=== PATIENT | female | born 1985 | race Caucasian/White ===

== ENCOUNTER 2017-08-08 07:58 | Observation (INO) ==
[2017-08-08] MEDS ORDERED: Albuterol 2.5 MG/3 ML NEBULIZER IH ONE (08:25)
[2017-08-08] MEDS ORDERED: CeFAZolin Syr 2,000MG/20 ML 2,000 MG/20 ML SYRINGE IVPB ONE (08:30)
[2017-08-08 08:44] LABS: Basophils % 0.2 %; Eosinophils # 0.3 K/mcL (0.0-0.6); Eosinophils % 3.7 %; Hematocrit 41.6 % (35.3-44.9); Hemoglobin 13.7 g/dL (11.5-15.4); Immature Granulocytes % 0.2 % (0-4); Lymphocytes # 2.5 K/mcL (0.6-4.6); Lymphocytes % 28.3 %; Mean Corpuscular HGB Conc 32.9 g/dL (31.6-35.5); Mean Corpuscular Hemoglobin 28.8 pg (28.0-33.3); Mean Corpuscular Volume 87.6 fL (83.0-100.0); Mean Platelet Volume 9.8 fL (9.4-12.4); Monocytes # 0.7 K/mcL (0.0-1.3); Monocytes % 8.2 %; Neutrophils # 5.3 K/mcL (1.6-8.9); Platelet Count 243 K/mcL (140-400); Red Blood Count 4.75 M/mcL (3.82-4.97); Red Cell Distribution Width 12.8 % (11.5-14.5); Segmented Neutrophils % 59.4 %
[2017-08-08] MEDS: Ringers Solution, Lactated 1,000 ML IVC SCH ×2 (08:48→13:24)
[2017-08-08 08:49] LABS: INR 1.1; Prothrombin Time 11.6 Seconds (9.4-12.1)
--- NOTE | 2017-08-08 08:53 | Anesthesia Evaluation PreOp ---
Date of Encounter: 08/08/17 Time of Encounter: 08:48 - Past History Planned Operation: left percutaneous nephrolithotomy Cardiac History: Denies any Significant Hx Pulmonary History: Smoker PLUMBING MANAGER History: Denies Any Significant HX Other Medical History: Renal (staghorn calculus) Anesthesia History: No Prior Anesthetic Complications, Past Anesthesia (KVNG, appy, lithotripsy) : No Alcohol Use: none Drug use: none Medications and Allergies HYDROcodone/Acet 5/325 mg [[place] 5-325 mg] 1 tab PO Q6H PRN 08/08/17 [History] 3 Allergy/AdvReac Type Severity Reaction Status Date / Time codeine Allergy Hives Verified 08/08/17 08:20 tramadol AdvReac Vomiting/NA Verified 08/08/17 08:20 USEA - Meds/Allergy Pre-op Review Medications Reviewed: Yes Allergies Reviewed: Yes Beta Blockers on Current Med List: No Anesthesia Exam Selected Entries 08/08/17 08:36 Temperature 97.8 F Pulse Rate 84 Respiratory Rate 18 Blood Pressure 114/72 O2 Sat by Pulse Oximetry 100 NPO (# of Hours): 8 - HEENT Mallampati: II Teeth: Edentulous Oral Opening: Greater than 3 - PLUMBING MANAGER LOC: Oriented PLUMBING MANAGER Motor: Normal RUE, Normal LUE, Normal RLE, Normal LLE, Normal Face PLUMBING MANAGER Sensory: Normal: RUE, LUE, RLE, LLE, Face - Cardiac Rhythm: Regular Murmur: None - Pulmonary Breath Sounds: bilateral Clear Respiratory Effort: Symmetrical Anesthesia Assess/Plan ASA Score: 2 Modified [place] Scale for Level of Consciousness: Cooperative, oriented, and tranquil Anesthetic Plan: General Monitoring Plan: Standard Monitors Recovery Plan: PACU (agrees to GA)
--- NOTE | 2017-08-08 09:06 | History & Physical Report ---
Date of Encounter: 08/08/17 Time of Encounter: 09:06 24 Hour HP Update - Instructions Instructions: If the History and Physical is less than 30 days old and was completed prior to A.M. admission and or procedure and has NOT been updated on calendar day of procedure please complete this update prior to performing procedure. - Update Patient reports changes in Medical Condition: No Changes in examination, assessment, or condition: No Changes in Medication: No Preop tests/diagnostics Reviewed: Yes Surgery Remains Indicated: Yes Consent for Planned Operative Procedure(s) Verified: Yes - Pre-Operative Checklist Preoperative Checklist Indicated: Yes Prophylactic Antibiotic Ordered: Yes Home Medications Include Beta Parker: No Is VTE Prophylaxis Indicated?: Yes
[2017-08-08] MEDS ORDERED: *HR* FentaNYL (PF) 100 MCG/2 ML VIAL ONE ×4 (09:14→10:58)
[2017-08-08] MEDS ORDERED: *HR* Midazolam HCl 2 MG/2 ML VIAL ONE ×2 (09:14→09:47)
[2017-08-08] MEDS ORDERED: Dexamethasone 4 MG/ML VIAL ONE (09:15)
[2017-08-08] MEDS ORDERED: Ondansetron 4 MG/2 ML VIAL ONE (09:15)
[2017-08-08] MEDS ORDERED: 0.9 % Sodium Chloride 500 ML ONE (09:16)
[2017-08-08] MEDS ORDERED: *HR* Rocuronium Bromide 50 MG/5 ML VIAL ONE (09:21)
[2017-08-08] MEDS ORDERED: *HR* Succinylcholine 200 MG/10 ML VIAL IVP ONE (09:21)
[2017-08-08] MEDS ORDERED: *HR* Midazolam HCl 2 MG/2 ML VIAL IVP ONE ×3 (09:29→09:55)
[2017-08-08] MEDS ORDERED: *HR* FentaNYL (PF) 100 MCG/2 ML VIAL IVP ONE ×3 (09:29→09:55)
--- NOTE | 2017-08-08 09:36 | History & Physical Report ---
Date of Encounter: 08/08/17 Time of Encounter: 09:00 24 Hour HP Update - Instructions Instructions: If the History and Physical is less than 30 days old and was completed prior to A.M. admission and or procedure and has NOT been updated on calendar day of procedure please complete this update prior to performing procedure. - Update Patient reports changes in Medical Condition: No Changes in examination, assessment, or condition: No Changes in Medication: No Preop tests/diagnostics Reviewed: Yes Pre-Op MRSA Screen: Negative Surgery Remains Indicated: Yes Consent for Planned Operative Procedure(s) Verified: Yes - Pre-Operative Checklist Preoperative Checklist Indicated: Yes Prophylactic Antibiotic Ordered: No (Aready receiving it) Is VTE Prophylaxis Indicated?: NO
--- NOTE | 2017-08-08 09:40 | Pre-Sedation Evaluation ---
Pre-sedation evaluation - Pre-sedation checklist Date of procedure: 08/08/17 Recent Vitals: Last Vital Signs Temp 97.8 F 08/08/17 08:36 Pulse 84 08/08/17 08:36 Resp 18 08/08/17 08:49 BP 114/72 08/08/17 08:49 Pulse Ox 100 08/08/17 08:49 H&P (including ROS) documented in medical record: Yes Previous reaction to sedatives/anesthetics: No Dietary Status: NPO after Midnight Airway Assessment: Patient can open mouth completely, TMJ function normal, Micrognathia (under-bite, receding chin) absent, Neck with adequate range of motion Possible difficult airway: No ASA Classification *see protocol: CLASS II-Mild systemic disease Plan of Care: Pt appropriate candidate for procedure/moderate/conscious sedation , Risks/benefits of procedure/sedation discussed w/ patient/family, If not NPO; Risk of intake outweiged by necessity to perform procedure
[2017-08-08] MEDS ORDERED: Ondansetron 4 MG/2 ML VIAL IVP ONE (09:50)
--- NOTE | 2017-08-08 10:25 | IR Procedure Note ---
Date of procedure: 08/08/17 Consent Obtained: Written consent Timeout: Correct patient and procedure verified, Correct site verified, Time out performed, Skin prep completed Indications: renal stone Procedure Performed: left nephroureteric catheter placement Was there an store assistant present: No Site/Technique: left, 18G needle olaced in lower pole calyx Results/Findings: Adequate placement of catheter around the stone into bladder Estimated blood loss (cc): 4 Complications: None; Tolerated procedure well Post Procedure Treatment Plan: to OR Specimen: none
[2017-08-08] MEDS ORDERED: Neostigmine Methylsulfate 3 MG/3 ML SYRINGE ONE (11:39)
--- NOTE | 2017-08-08 12:39 | Operative Note ---
Date of procedure: 08/08/17 Pre-op diagnosis: Left partial staghorn calculus, 3cm Post-op diagnosis: same Procedure: Left percutaneous nephrolithotomy. Left antegrade nephrostogram Left nephrostomy tube placement. Implants: Russo catheter 6 Welsh by 26 cm stent Left 20 Welsh nephrostomy tube. Complications: none Anesthesia: FABIOA Surgeon: Ezequiel Avalos Was there an health center assistant present: No Estimated blood loss (cc): 20 Specimen: left renal stone Condition: stable Disposition: PACU Procedure in Detail: Indications: Ms. Meade is a 32-year-old female who has a history of a large stone burden on the left side. She has a partial left sided staghorn calculus. She previously had a PCNL on the same side back in 2013. Radiology was able to obtain access for us today. She elected to undergo a left percutaneous nephrolithotomy. She is aware of the risks of the procedure including but not limited to bleeding, infection, injury to other structures, pneumothorax, hydrothorax, incomplete fragmentation, and the risk of anesthesia. Procedure: After informed consent was obtained Ms. Meade was brought back to the operating room and placed in the supine position. A time out was performed. General anesthesia was administered and an endotracheal tube was placed. A Russo catheter was inserted. She was then placed in the prone position. All pressure points were well padded and she was secured to the table. Previously, interventional radiology had obtained access for us. The patient was prepped and draped in the usual sterile fashion. A wire was placed down the access catheter using fluoroscopic guidance into the bladder. Catheter was removed. An incision was made by the wire. The 8 Welsh/ 10 Welsh dilator was then placed. An antegrade nephrostogram showed a large filling defect within the renal pelvis. I was able to get the 10 Welsh portion past the UPJ and a second Super Stiff wire was placed. The dilator was removed. I then balloon dilated the tract. The sheath was placed over top and the balloon was taken down. The offset nephroscope was then placed. The large calculus was fragmented using the lithoclast. Most of the stone burden was in the renal pelvis and lower pole calyx. The stone fragments were aspirated away or removed with the Perc N [place] basket. Once I felt that I adequately remove the stone I inserted the flexible cystoscope. All the calyces were surveyed. There was a small amount of stone in the lower pole calyx. This was basket extracted. An antegrade nephrostogram was performed. I surveyed all the calyces. No residual stone was noted. After the stones had all been removed I then passed a 6 Welsh by 26 cm double-J stent. A good curl seen in the kidney and the bladder. I then removed the sheath. A 20 Welsh [place] tip catheter was placed over the wire. 5 mL was instilled into the balloon. An antegrade nephrostogram was then performed. There was some evidence of extravasation, but the stent seemed to be in good position. Pressure was applied to the flank. Hemostasis appeared adequate. The nephrostomy tube was secured to the skin using a Prolene suture. Dry sterile dressings were applied to her back. She was awakened from general seizures about every good condition. All sponge, needle, and instrument counts were correct.
[2017-08-08] MEDS: *HR* HYDROmorphone (PF) 1 MG/ML SYRINGE IVP PRN ×7 (13:00→21:23)
--- NOTE | 2017-08-08 13:32 | Anesthesia Evaluation Post Op ---
Date of Encounter: 08/08/17 Time of Encounter: 13:31 - Vital Signs Vital Signs: Vital Signs/O2 Sat, Most Current Temp Pulse Resp BP Pulse Ox 97.3 F L 82 16 100/66 98 08/08/17 13:21 08/08/17 13:21 08/08/17 13:21 08/08/17 13:21 08/08/17 13:21 - Lungs Lungs: Clear Ascult./Percussion - Airway Airway: Non-obstructed - Cardiovascular Regular Rate - Mental Status Mental Status: Asleep with brisk response to light stimulation - Pain Pain Scale: 6 - Nausea Vomiting Nausea Vomiting: Responds to treatment with IV Meds (rec'd two doses zofran, nausea decreased) - Hydration Hydration: NPO, Russo catheter - Discharge PostOp Status: Transfer Patient to floor
[2017-08-08] MEDS ORDERED: Ondansetron 4 MG/2 ML VIAL IVP PRN (14:22)
[2017-08-08] MEDS ORDERED: Naloxone 0.4 MG/ML INJ IVP PRN (14:22)
[2017-08-08] MEDS ORDERED: Acetaminophen 325 MG TABLET PO PRN (14:22)
[2017-08-08] MEDS: 0.9 % Sodium Chloride 1,000 ML IVC SCH (14:47)
[2017-08-09] MEDS: 0.9 % Sodium Chloride 1,000 ML IVC SCH ×2 (01:27→19:43)
[2017-08-09] MEDS: *HR* HYDROmorphone (PF) 1 MG/ML SYRINGE IVP PRN (05:00)
[2017-08-09 06:26] LABS: Basophils % 0.1 %; Eosinophils # 0.1 K/mcL (0.0-0.6); Eosinophils % 0.4 %; Hematocrit 33.6 % (35.3-44.9); Immature Granulocytes % 0.8 % (0-4); Lymphocytes # 2.3 K/mcL (0.6-4.6); Lymphocytes % 14.9 %; Mean Corpuscular HGB Conc 32.7 g/dL (31.6-35.5); Mean Corpuscular Hemoglobin 28.9 pg (28.0-33.3); Mean Corpuscular Volume 88.2 fL (83.0-100.0); Mean Platelet Volume 10.4 fL (9.4-12.4); Monocytes # 1.3 K/mcL (0.0-1.3); Monocytes % 8.6 %; Platelet Count 213 K/mcL (140-400); Red Blood Count 3.81 M/mcL (3.82-4.97); Red Cell Distribution Width 13.2 % (11.5-14.5); Segmented Neutrophils % 75.2 %
[2017-08-09 06:29] LABS: Neutrophils # 11.5 K/mcL (1.6-8.9)
[2017-08-09 06:31] LABS: BUN/Creatinine Ratio 15 (6-26); Blood Urea Nitrogen 11 mg/dL (6-20); Calcium 8.5 mg/dL (8.6-10.3); Carbon Dioxide 25 mEq/L (23-29); Chloride 109 mEq/L (98-107); Glucose 107 mg/dL (70-105); Osmolality,Calculated 292 (280-300); Potassium 4.2 mEq/L (3.5-5.1); Sodium 141 mEq/L (136-145); eGFR For African Americans > 60 (> 60); eGFR For Non-African Americans > 60 (> 60)
--- NOTE | 2017-08-09 07:24 | Urology Progress Note ---
Date of Encounter: 08/09/17 Time of Encounter: 07:22 - Assessment and Plan (1) Nephrolithiasis Current Visit: Yes Status: Acute Assessment and plan: Postop day #1 status post left percutaneous nephrolithotomy. Pain control as him with IV narcotics at this point. 1. Nephrostomy tube was removed today. 2. Will remove Russo catheter 3. Ambulate 3 times per day. 4. Gen. diet. 5. Will see if pain control improves with oral narcotic. I anticipate she will require another overnight stay. We'll transition to observation care. Progress Note Narrative: Postop day #1 status post left percutaneous nephrolithotomy. She is doing well. Pain has been well-controlled on IV narcotic. She is breathing well. She is tolerating general diet. Urine has been draining light pink from the nephrostomy tube. Postoperative chest x-ray showed no evidence of effusion. Objective Initial Vital Signs Temp Pulse Resp BP Pulse Ox 97.8 F 84 18 114/72 100 08/08/17 08:36 08/08/17 08:36 08/08/17 08:36 08/08/17 08:36 08/08/17 08:36 - General physical appearance Present: well developed, well nourished, no distress - Respiratory Present: normal respiratory effort - Abdomen Present: soft - Genitourinary Urine Appearance: Present: Hematuria (Nephrostomy tube with light pink urine, Russo with clear urine.) - Labs 08/09/17 05:32 08/09/17 05:32 Diabetes panel 08/09/17 Range/Units 05:32 Sodium 141 (136-145) mEq/L Potassium 4.2 (3.5-5.1) mEq/L Chloride 109 H (98-107) mEq/L Carbon Dioxide 25 (23-29) mEq/L BUN 11 (6-20) mg/dL Creatinine 0.73 (0.60-1.20) mg/dL Glucose 107 H (70-105) mg/dL Calcium 8.5 L (8.6-10.3) mg/dL Calcium panel 08/09/17 Range/Units 05:32 Calcium 8.5 L (8.6-10.3) mg/dL Pituitary panel 08/09/17 Range/Units 05:32 Sodium 141 (136-145) mEq/L Potassium 4.2 (3.5-5.1) mEq/L Chloride 109 H (98-107) mEq/L Carbon Dioxide 25 (23-29) mEq/L BUN 11 (6-20) mg/dL Creatinine 0.73 (0.60-1.20) mg/dL Glucose 107 H (70-105) mg/dL Calcium 8.5 L (8.6-10.3) mg/dL Adrenal panel 08/09/17 Range/Units 05:32 Sodium 141 (136-145) mEq/L Potassium 4.2 (3.5-5.1) mEq/L Chloride 109 H (98-107) mEq/L Carbon Dioxide 25 (23-29) mEq/L BUN 11 (6-20) mg/dL Creatinine 0.73 (0.60-1.20) mg/dL Glucose 107 H (70-105) mg/dL Calcium 8.5 L (8.6-10.3) mg/dL - VTE Documentation of Mechanical Device: Intermittent pneumatic compression device Consult Discharge Plan - Plan Referrals: NONE,PCP [Primary Care Provider] - Eddie Corrales [Family Provider] -
[2017-08-09] MEDS: cefTRIAXone 1,000 MG in Water for inj. (sterile) 20 ML 10 ML IVP SCH (09:31)
[2017-08-09] MEDS: *HR* OxyCODONE Immed Rel 5 MG TABLET PO PRN ×2 (09:53→15:53)
[2017-08-09] MEDS ORDERED: Ketorolac 30 MG/ML VIAL IVP PRN (16:02)
[2017-08-10] MEDS: *HR* OxyCODONE Immed Rel 5 MG TABLET PO PRN ×2 (00:21→09:34)
--- NOTE | 2017-08-10 07:13 | Discharge Summary ---
Date of Encounter: 08/10/17 Time of Encounter: 07:11 - Discharge Diagnosis (1) Nephrolithiasis Priority: Primary Status: Acute - Discharge Medications Prescriptions: Docusate [Colace] 100 mg PO BID #60 capsule levoFLOXacin [Levaquin] 500 mg PO DAILY #5 tablet OxyCODONE Immed Rel [Roxicodone 5 MG] 10 mg PO Q6H PRN #25 tablet PRN Reason: Moderate Pain Home Medications: HYDROcodone/Acet 5/325 mg [[place] 5-325 mg] 1 tab PO Q6H PRN 08/08/17 [History] Docusate [Colace] 100 mg PO BID #60 capsule 08/10/17 [Rx] OxyCODONE Immed Rel [Roxicodone 5 MG] 10 mg PO Q6H PRN #25 tablet 08/10/17 [Rx] levoFLOXacin [Levaquin] 500 mg PO DAILY #5 tablet 08/10/17 [Rx] Allergies/Adverse Reactions: 3 Allergy/AdvReac Type Severity Reaction Status Date / Time codeine Allergy Hives Verified 08/08/17 08:20 tramadol AdvReac Vomiting/NA Verified 08/08/17 08:20 USEA - Impressions ITS Impressions Nephrostomy 08/08/17 00:00 IMPRESSION: Successful left nephroureteric catheter placement through a lower pole calyx with the tip in the urinary bladder. D/ / 08/08/2017 10:50:22 Karolina Nelson MD / [email or web address] Interpreting Provider: Karolnia Nelson MD Percutaneous Antegrade Pyelogram 08/08/17 10:50 IMPRESSION: Intraprocedural fluoroscopic spot images as above. See separate procedure report for more information. D/ / Luis Enrique Daigle MD / Luis Enrique Daigle MD Interpreting Provider: Luis Enrique Daigle MD Chest X-Ray 08/08/17 12:39 IMPRESSION: No acute process. D/ / Karolina Nelson MD / Karolina Nelson MD Interpreting Provider: Karolina Nelson MD Chest X-Ray 08/09/17 16:04 IMPRESSION: No acute process. D/ / Sabiha Lara MD / Sabiha Lara MD Interpreting Provider: Sabiha Lara MD Date of admission: 08/09/17 07:25 Primary care physician: PCP NONE Consults: 08/09/17 07:26 Consult to [place] [CONS] Routine Reason for SW Consult: Assist with discharge planning. 08/09/17 16:02 Consult to Invasive Line Access Team [CONS] Routine Reason for Consult: Difficult IV access Line Type: Midline 08/09/17 17:08 Consult to Invasive Line Access Team [CONS] Routine Reason for Consult: limited vascular access and need for atbs/pain meds Line Type: EPIV Discharging clinician: Ezequiel Avalos Anticipated date of discharge: 08/10/17 - Patient Status Disposition: Home, Self-Care Condition: Good Functional capacity at discharge: independent ambulation Overall status at discharge: patient is progressing back to baseline - Discharge Instructions Follow Up With: Ezequiel Avalos MD [Partnered Physician] - (1-2 weeks for a cystoscopy and stent removal.) Additional Instructions: 1. No heavy lifting greater than 20 pounds x2 weeks. 2. No tub baths x2 weeks. 3. May shower tomorrow. 4. She should follow up in 2 weeks for a cystoscopy and stent removal. 5. She should return for any fevers, chills, nausea, vomiting, or significant swelling/ecchymosis. - Diet and Activity Activity: increase activity as tolerated, other Diet: advance to your usual diet - Hospital Course Hospital course: Ms. Meade is a 32 year old female with a history of a left staghorn calculus. She underwent a percutaneous nephrolithotomy on August 08 2017. On postoperative day #1 her nephrostomy tube and Russo catheter removed. Her pain control slowly improved and by postoperative day #2 and it was adequately controlled on oral narcotics. Her flank incision showed no evidence of erythema. There was bloody drainage into her dressing. She was able to void. She tolerated regular diet. She was discharged home that day. - Time Spent with Patient Total time spent providing and/or coordinating discharge services: Less than 30 minutes Exam Initial Vital Signs Temp Pulse Resp BP Pulse Ox 97.8 F 84 18 114/72 100 08/08/17 08:36 08/08/17 08:36 08/08/17 08:36 08/08/17 08:36 08/08/17 08:36 - General physical appearance Present: well developed, well nourished, no distress - Eyes Absent: icteric - ENT Present: normal mucosa - Neck Present: trachea midline - Respiratory Present: normal respiratory effort - Cardiovascular Cardiovascular exam IM: RRR - Abdomen Abdomen: Present: soft (Flank wound is open with mild bloody drainage into an ostomy appliance.) - VTE Documentation of Mechanical Device: Intermittent pneumatic compression device
[2017-08-10] MEDS: cefTRIAXone 1,000 MG in Water for inj. (sterile) 20 ML 10 ML IVP SCH (09:34)
[2017-08-10 15:52] VITALS: BP 117/76
== END 2017-08-10 17:10 | disposition home or self-care (01) ==
LOC: SAMDAY 07:58 → 3ANU 07:58
PROVIDERS: ADMIT Urology; ATTEND Urology